=== PATIENT | female | born 1940 | race Caucasian/White ===

== ENCOUNTER 2018-03-12 13:10 | Emergency (ER) | payer MEDICARE ==
[~2018-03-12] VITALS: Ht 162.6 cm; Wt 79.4 kg
--- NOTE | 2018-03-12 13:42 | NUR ---
MSE COMPLETED, PT D/C'D HOME, [facility]GE[facility] REFERRAL GIVEN. PT AMBULATED W/O DIFF/TOOK ALL BELONGINGS.
[2018-03-12 14:01] VITALS: BP 140/72
== END 2018-03-12 13:42 | disposition home or self-care (01) ==
LOC: ER 13:16
DX: M26.602 Left temporomandibular joint disorder, unspecified (principal); I48.91 Unspecified atrial fibrillation; Z88.5 Allergy status to narcotic agent
CPT/HCPCS: 99281; A4663

== ENCOUNTER 2021-09-09 12:27 | Emergency (ER) | payer MEDICARE ==
[~2021-09-09] VITALS: Ht 162.6 cm; Wt 78.9 kg
[2021-09-09] MEDS ORDERED: MAGNESIUM CITRATE 296 ML BOTTLE PO ONE (12:45)
[2021-09-09] MEDS ORDERED: IV NORMAL SALINE 1000 ML BAG IV ONE (12:45)
[2021-09-09] MEDS ORDERED: MAGNESIUM CITRATE 296 ML BOTTLE ONE (13:00)
[2021-09-09] MEDS ORDERED: POLY119P2 PO (13:01)
[2021-09-09 13:17] LABS: HEMATOCRIT 32.9 % (31.2-41.9); MEAN CORPUSCULAR HEMOGLOBIN 30.4 uug (24.7-32.8); MEAN CORPUSCULAR VOLUME 90.7 fL (75.5-95.3); PLATELET COUNT (AUTO) 480 K/uL (179-408)
[2021-09-09 13:23] LABS: CREATININE 0.9 mg/dL (0.6-1.3); POTASSIUM 4.4 mmol/L (3.5-5.1)
[2021-09-09 13:28] LABS: BILIRUBIN,TOTAL 0.4 mg/dL (0.2-1.0); TOTAL PROTEIN, SERUM 7.1 g/dL (6.4-8.2)
--- NOTE | 2021-09-09 13:53 | NUR ---
Patient discharged to home in stable condition. Written and verbal after care instructions given. Patient verbalizes understanding of instructions. Stressed follow up or return to ER for worsening s/s.pt walks in steady gait.
[2021-09-09 14:02] VITALS: BP 119/61
== END 2021-09-09 14:03 | disposition home or self-care (01) ==
LOC: ER 12:28
DX: K59.00 Constipation, unspecified (principal); Z86.73 Personal history of transient ischemic attack (TIA), and cerebral infarction without residual deficits; I48.91 Unspecified atrial fibrillation; Z79.01 Long term (current) use of anticoagulants
CPT/HCPCS: 36415; 74021; 85025; A4663; J7030

== ENCOUNTER 2021-09-14 11:10 | Emergency (ER) | payer MEDICARE ==
[~2021-09-14] VITALS: Ht 162.6 cm; Wt 78.5 kg
[~2021-09-14 11:10] MED LIST: POLY119P2 PO
[2021-09-14] MEDS ORDERED: IV NORMAL SALINE 1000 ML BAG IV ONE (12:45)
[2021-09-14] MEDS ORDERED: DIATR MEGLU/DIATRIZOATE SODIUM 120 ML BOTTLE PO ONE (12:45)
[2021-09-14 12:49] LABS: HEMATOCRIT 30.4 % (31.2-41.9); MEAN CORPUSCULAR HEMOGLOBIN 30.6 uug (24.7-32.8); MEAN CORPUSCULAR VOLUME 89.2 fL (75.5-95.3); PLATELET COUNT (AUTO) 419 K/uL (179-408)
[2021-09-14] MEDS ORDERED: DIATR MEGLU/DIATRIZOATE SODIUM 30 ML BOTTLE ONE (12:51)
[2021-09-14 12:56] LABS: POTASSIUM 4.3 mmol/L (3.5-5.1)
[2021-09-14] MEDS ORDERED: SWABABLE VALVE TRANSFER SET EA MC ONE (12:59)
[2021-09-14] MEDS ORDERED: IV NORMAL SALINE 250 ML IV ONE (12:59)
[2021-09-14] MEDS ORDERED: IOHEXOL 300MG/ML 100 ML INFUS..BTL ONE (12:59)
[2021-09-14 13:01] LABS: BILIRUBIN,DIRECT 3.6 mg/dL (0.0-0.2); BILIRUBIN,TOTAL 4.5 mg/dL (0.2-1.0); TOTAL PROTEIN, SERUM 6.7 g/dL (6.4-8.2)
[2021-09-14 14:25] LABS: *BILIRUBIN,URIN 3+ (NEGATIVE); *BLOOD, URINE 3+ (NEGATIVE); *CLARITY,URINE TURBID (CLEAR); *COLOR,URINE Brown (YELLOW); *KETONES,URINE TRACE (NEGATIVE); LEUKOCYTE ESTERASE ,URINE NEGATIVE (NEGATIVE); NITRITE, URINE NEGATIVE (NEGATIVE); PH,URINE 5.5 (5.0-8.0); UGLUCOSE NEGATIVE (NEGATIVE)
--- NOTE | 2021-09-14 16:57 | NUR ---
PER DR HAIR EPIC WAS CALLED JUDY GOYAL FOR ADMISSION.
--- NOTE | 2021-09-14 17:10 | NUR ---
JUDY MELTON CALLED BACK SPOKE WITH DR HAIR.
--- NOTE | 2021-09-14 17:35 | NUR ---
DR OLIVAS CALLED BACK SPOKE WITH DR HAIR WILL NEED TO TRANSFER.
--- NOTE | 2021-09-14 17:53 | NUR ---
CALLED [facility] [place] [phone] SPOKE WITH GELACIO. NO BEDS AVAILABLE.
--- NOTE | 2021-09-14 18:50 | NUR ---
SPOKE WITH RONDA FROM TRANSFER FOR A POSIBLE TRANSFER TO [facility]. . PER DR HAIR. FAX [phone].
--- NOTE | 2021-09-14 20:40 | NUR ---
Spoke with pt and dr. cervantes, plan is for pt to go directly to [facility] after discharge
[2021-09-14 20:47] LABS: BACTERIA,URINE FEW /HPF (NONE SEEN); RBC,URINE 50-80 /HPF (0-3); WBC,URINE 0-3 /HPF (0-3)
[2021-09-14 20:48] LABS: CALCIUM OXALATE CRYSTALS,UR FEW /HPF (NONE SEEN); MUCUS,URINE MODERATE /LPF (0-FEW); SQUAMOUS EPITHELIAL CELL,UR FEW /HPF (NONE SEEN); URINE AMORPHOUS URATE MODERATE /HPF
--- NOTE | 2021-09-14 20:50 | NUR ---
IV removed. Catheter intact and site benign. Pressure and 4x4 gauze applied to site. No bleeding noted.
--- NOTE | 2021-09-14 21:03 | NUR ---
Patient discharged to home in stable condition. Written and verbal after care instructions given. Patient verbalizes understanding of instructions. Stressed follow up or return to ER for worsening s/s.
[2021-09-14 21:07] VITALS: BP 130/82
== END 2021-09-14 21:08 | disposition home or self-care (01) ==
LOC: ER 11:10
DX: K83.1 Obstruction of bile duct (principal); R19.03 Right lower quadrant abdominal swelling, mass and lump; R11.0 Nausea; R63.0 Anorexia; Z68.29 Body mass index [BMI] 29.0-29.9, adult; Z86.73 Personal history of transient ischemic attack (TIA), and cerebral infarction without residual deficits; I48.91 Unspecified atrial fibrillation; Z20.822 Contact with and (suspected) exposure to COVID-19; Z53.29 Procedure and treatment not carried out because of patient's decision for other reasons
CPT/HCPCS: 36415; 71045; 74177; 76705; 80048; 80076; 81001; 83690; 84484; 85025; 87426; 93005; 96360; 99291; Q9963; Q9967; 70030-TC; A4663; J7030; J7050